=== PATIENT | male | born 1970 | race Caucasian/White ===

== ENCOUNTER 2016-11-07 10:25 | Emergency (ER) | payer SELFPAY ==
[~2016-11-07] VITALS: Ht 182.9 cm; Wt 96.0 kg
[2016-11-07 10:35] VITALS: BP 120/72
== END 2016-11-07 14:10 | disposition home or self-care (01) ==
LOC: ED 13:45
DX: S93.492A Sprain of other ligament of left ankle, initial encounter (principal); X50.1XXA Overexertion from prolonged static or awkward postures, initial encounter; Y93.89 Activity, other specified; Y99.8 Other external cause status; Y92.328 Other athletic field as the place of occurrence of the external cause
CPT/HCPCS: 99284